=== PATIENT | female | born 1990 | race Two or more races ===

== ENCOUNTER 2023-01-09 08:29 | Outpatient (REF) | payer OTHER, SELFPAY ==
[2023-01-09 11:20] LABS: MANUAL DIFF FLAG NO
[2023-01-09 11:31] LABS: Basophils Absolute Auto 0.1 X10*3/uL (0.0-0.2); Basophils Percent Auto 0.7 % (0-2); Eosinophils Absolute Auto 0.3 X10*3/uL (0.0-0.4); Eosinophils Percent Auto 4.4 % (0-4); Hematocrit 43.6 % (37.0-47.0); Hemoglobin 14.3 g/dl (12.0-16.0); Imm Gran Abs Auto 0.03 X10*3/uL (0.00-0.03); Imm Gran Pct Auto 0.4 % (0.0-0.4); Lymphocytes Absolute Auto 2.3 X10*3/uL (1.2-4.9); Lymphocytes Percent Auto 31.3 % (20-40); Mean Corpuscular HGB Conc 32.8 g/dl (31.0-35.0); Mean Corpuscular Hemoglobin 29.4 pg (27.0-33.0); Mean Corpuscular Volume 89.7 fL (80.0-98.0); Mean Platelet Volume 10.4 fL (9.4-12.3); Monocytes Absolute Auto 0.6 X10*3/uL (0.1-1.2); Monocytes Percent Auto 8.4 % (2-11); Neutrophils Percent Auto 54.8 % (45-73); Platelet Count 254 X10*3/uL (160-400); Red Blood Count 4.86 X10*6/uL (4.20-5.50); White Blood Count 7.3 X10*3/uL (4.8-10.8)
[2023-01-09 11:46] LABS: Estimated Average Glucose 100 mg/dL; Hemoglobin A1c % 5.1 %
[2023-01-09 12:15] LABS: Alanine Aminotransferase 20 U/L (0-31); Albumin Level 4.1 g/dL (3.5-5.0); Alkaline Phosphatase 76 U/L (39-117); Anion Gap 15 (12-20); Aspartate Amino Transferase 20 U/L (5-31); Bilirubin Total 0.5 mg/dL (0.0-1.0); Blood Urea Nitrogen 14 mg/dL (9-16); Calcium 9.2 mg/dL (8.4-10.2); Carbon Dioxide 22 mmol/L (22-29); Chloride 107 mmol/L (96-108); Cholesterol 200 mg/dL; Estimated Glomerular Filt Rate > 60; Glucose Fasting 82 mg/dL (60-99); HDL Cholesterol 70 mg/dL; Iron 100 mcg/dL (30-160); LDL Cholesterol Calculated 121 mg/dl; Percent Iron Saturation 32 % (15-50); Potassium 3.8 mmol/L (3.3-5.1); Sodium 140 mmol/L (135-145); Total Iron Binding Capacity 312 mcg/dL (228-428); Total Protein 7.1 g/dL (6.5-8.0); Triglycerides 48 mg/dL; Unsaturated Iron Binding 212 ug/dL
[2023-01-09 12:39] LABS: Bacteria Urine 1+ (None Seen); RBC Urine >20 /HPF (0-2)
[2023-01-09 12:43] LABS: Appearance Urine Turbid; Color Urine Orange; Glucose Urine UA >=1000 mg/dL (Negative); Leukocyte Esterase Urine Trace (Negative); Nitrite Urine Negative (Negative); PH 5.5 (5.0-9.0); Specific Gravity - Urine >= 1.030 (1.005-1.025); UMIC TRIGGER UA YES; Urine Blood Large (3+) (Negative); Urine Ketones Negative (Negative); Urine Protein 100 (2+) mg/dL (Neg-Trace)
[2023-01-09 13:49] LABS: TSH reflex Free T4 0.67 uIU/mL (0.32-4.0)
== END 2023-01-09 08:30 | disposition home or self-care (01) ==
LOC: HO.HMGCLDS 08:29
PROVIDERS: Visit Provider Internal Medicine
DX: Z00.00 Encounter for general adult medical examination without abnormal findings (principal); F41.9 Anxiety disorder, unspecified; R53.83 Other fatigue; R73.9 Hyperglycemia, unspecified
CPT/HCPCS: 36415; 80053; 80061; 81001; 83036; 83540; 84443; 85025

== ENCOUNTER 2023-11-01 12:46 | Outpatient (AMB) | payer OTHER, SELFPAY ==
[2023-11-01 13:11] VITALS: BP 110/60; PULSE 83; TEMP 36.7; O2SAT 98; BMI 22.7
--- NOTE | 2023-11-01 13:11 | AM.OFFWIN_ITS ---
Intake Vital Signs 11/01/23 13:11 Height 5 ft 3 in Weight 128 lb BMI 22.7 BP 110/60 Blood Pressure Location Rt brachial Position Sitting Pulse 83 Pulse Source Pulse Oximeter Temp 98.0 F Pulse Oximetry (%) 98 Oxygen Delivery Method Room Air Intake Visit Reasons: EST/cough and fever (lobby masked) Intake Note: PT is here today for cough and fever started3 days ago Patient Tobacco Use Status: Former Tobacco user Allergies No Known Allergies Allergy (Verified 11/01/23 13:12) HPI HPI Comments History of Present Illness Details This is a 33-year-old female who presents to the office today for sick visit. Patient complaining of a fever and cough x3 days. She states the cough is dry without sputum production. She reports diffuse chest discomfort with coughing. She denies any shortness of breath. She denies any abdominal pain or nausea/vomiting / diarrhea. PFSH Family History (Updated 01/07/23 @ 08:12 by Trinity Fay MD) Mother DM type 2 (diabetes mellitus, type 2) HTN (hypertension) Social History (Updated 01/07/23 @ 08:08 by Trinity Fay MD) Household Members Other:: , 2 children, from [place] Housing: Apartment Patient Tobacco Use Status: Former Tobacco user e-Cigarette/Vaping Use: Never Used service: No Current occupational status: unemployed Cognitive needs: No Hearing needs: No Vision needs: Yes Review of Systems Const All systems reviewed & are unremarkable except as noted in HPI and below Reports no additional complaints Eyes Reports no additional complaints ENT Reports no additional complaints Card Reports no additional complaints Resp Reports no additional complaints GI Reports no additional complaints Reports no additional complaints Musc Reports no additional complaints Skin/Breast Reports system reviewed and no additional complaints, except as documented Neuro Reports no additional complaints Psych Reports no additional complaints Endo Reports no additional complaints Merrick/Lymph Reports no additional complaints Aller/Immun Reports no additional complaints Physical Exam Vital Signs: Last Vital Signs Temp 98.0 F 11/01/23 13:11 Pulse 83 11/01/23 13:11 BP 110/60 11/01/23 13:11 Pulse Ox 98 11/01/23 13:11 Oxygen Delivery Method Room Air 11/01/23 13:11 BMI result Body Mass Index 22.7 Const Other: Vital signs reviewed. Constitutional: Non-toxic appearing. No acute distress. Well-developed and well-nourished. HEENT: Normocephalic and atraumatic. Tympanic membranes without erythema, edema, or bulging bilaterally. External auditory canals without erythema or edema bilaterally. Moist mucous membranes. No pharyngeal erythema or exudates. Skin: Warm and dry. No rashes or lesions noted. Neck: Full and painless range of motion. No cervical lymphadenopathy. Cardio: Regular rate and rhythm. No murmurs, gallops, or rubs. No lower extremity edema. No JVD. Pulmonary: No respiratory distress. No accessory muscle usage. Clear to auscultation bilaterally without wheezing, crackles, or rhonchi. Gastrointestinal: Soft, nontender, and nondistended in all 4 quadrants. Normoactive bowel sounds in all 4 quadrants. Genitourinary: No CVA tenderness. Musculoskeletal: Normal range of motion in joints throughout the body. No deformity or other signs of injury. Neuro: Alert and oriented x4. Cranial nerves 2-12 grossly intact. No focal deficits appreciated. Psych: Normal mood and affect. Assessment & Plan Assessment & Plan (1) Viral URI with cough: Code(s): J06.9 - Acute upper respiratory infection, unspecified Plan: This is a 33-year-old female who presents to the office complaining of low-grade fevers and dry cough x3 days and some chest discomfort with coughing. On physical examination, patient is lungs are clear to auscultation bilaterally. She has reproducible chest wall tenderness to palpation. Patient very likely has a viral URI with a cough and the chest discomfort is likely caused by intercostal sprain/ strain secondary to coughing. I have low suspicion for pneumonia at this time given no sputum production; however, I will check a chest x-ray to further evaluate for pneumonia. If positive, I will send antibiotics to patient's pharmacy. I have sent a prescription for p.o. benzonatate 200 mg 3 times daily as needed for cough. Patient was advised to follow-up here or proceed directly to the emergency room if she were to develop persistent or worsening symptoms such as sputum production, hemoptysis, or shortness of breath. Orders: Orders SARS-CoV2/FLU/RSV Today R09.89 - Other specified symptoms and signs involving the circulatory and respiratory systems XR chest 2V Today R05.9 - Cough, unspecified Medications: New benzonatate 200 mg PO TID PRN 14 caps 0RF cough Coding Level of Care Code Est Pt Level 3 (51220) Diagnoses Viral URI with cough J06.9
== END 2023-11-01 13:59 | disposition home or self-care (01) ==
PROVIDERS: PCP Internal Medicine; Visit Provider Physician Assistant Medical
DX: J06.9 Acute upper respiratory infection, unspecified (principal)
CPT/HCPCS: 99213

== ENCOUNTER 2023-11-01 13:44 | Outpatient (REF) | payer OTHER, SELFPAY ==
--- NOTE | ~2023-11-01 | XR_ITS ---
EXAMINATION: XR CHEST CLINICAL INFORMATION: Cough. COMPARISON: None available. TECHNIQUE: 2 views of the chest were obtained. FINDINGS: No significant abnormality is noted involving the heart, lungs, mediastinum, bony thorax or soft tissues. XR/XR chest 2V IMPRESSION: Unremarkable examination.
[2023-11-01 17:34] LABS: Influenza A PCR POSITIVE (Negative); Influenza B PCR NEGATIVE (Negative); Resp Syncy Virus RNA Qual PCR NEGATIVE (Negative); SARS COV2 PCR INHOUSE NEGATIVE (Negative)
== END 2023-11-01 13:45 | disposition home or self-care (01) ==
LOC: HO.HMGCX 13:44
PROVIDERS: PCP Internal Medicine; Visit Provider Physician Assistant Medical
DX: Z11.52 Encounter for screening for COVID-19 (principal); Z20.822 Contact with and (suspected) exposure to COVID-19; R09.89 Other specified symptoms and signs involving the circulatory and respiratory systems; R05.9 Cough, unspecified
CPT/HCPCS: 0241U; 71046

== ENCOUNTER 2024-04-17 10:47 | Outpatient (REF) | payer OTHER, SELFPAY ==
[2024-04-17 13:06] LABS: Appearance Urine Clear; Color Urine Yellow; Glucose Urine UA >=1000 mg/dL (Negative); Leukocyte Esterase Urine Negative (Negative); Nitrite Urine Negative (Negative); Specific Gravity - Urine >= 1.030 (1.005-1.025); UMIC TRIGGER UA YES; Urine Blood Moderate (2+) (Negative); Urine Ketones Negative (Negative); Urine Protein Negative (Neg-Trace)
[2024-04-17 13:10] LABS: Bacteria Urine None Seen (None Seen); Hyaline Casts Urine 0-2 /LPF (0-2); RBC Urine >20 /HPF (0-2); Squamous Epithelial Cell Urine 0-2 /HPF (0-2); WBC Urine 0-5 /HPF (0-5)
[2024-04-17 13:28] LABS: MANUAL DIFF FLAG NO
[2024-04-17 13:45] LABS: Basophils Percent Auto 0.6 % (0-2); Eosinophils Absolute Auto 0.1 X10*3/uL (0.0-0.4); Eosinophils Percent Auto 1.1 % (0-4); Imm Gran Abs Auto 0.02 X10*3/uL (0.00-0.03); Imm Gran Pct Auto 0.3 % (0.0-0.4); Lymphocytes Absolute Auto 2.4 X10*3/uL (1.2-4.9); Lymphocytes Percent Auto 36.7 % (20-40); Mean Corpuscular HGB Conc 32.6 g/dl (31.0-35.0); Mean Corpuscular Hemoglobin 29.9 pg (27.0-33.0); Mean Corpuscular Volume 91.7 fL (80.0-98.0); Mean Platelet Volume 10.6 fL (9.4-12.3); Monocytes Absolute Auto 0.7 X10*3/uL (0.1-1.2); Monocytes Percent Auto 9.8 % (2-11); Neutrophils Absolute Auto 3.4 x10*3/uL (2.0-8.3); Neutrophils Percent Auto 51.5 % (45-73); Platelet Count 239 X10*3/uL (160-400); Red Blood Count 4.69 X10*6/uL (4.20-5.50); Red Cell Distribution Width 13.1 % (11.0-16.0); White Blood Count 6.7 X10*3/uL (4.8-10.8)
[2024-04-17 14:02] LABS: Alanine Aminotransferase 16 U/L (0-31); Albumin Level 4.1 g/dL (3.5-5.0); Alkaline Phosphatase 121 U/L (39-117); Anion Gap 12 (12-20); Aspartate Amino Transferase 16 U/L (5-31); Bilirubin Total 0.2 mg/dL (0.0-1.0); Blood Urea Nitrogen 16 mg/dL (9-16); Calcium 9.2 mg/dL (8.4-10.2); Carbon Dioxide 25 mmol/L (22-29); Chloride 107 mmol/L (96-108); Estimated Glomerular Filt Rate > 60; Glucose Random 84 mg/dL (60-115); Magnesium 2.2 mg/dL (1.6-2.6); Phosphorus 2.7 mg/dL (2.7-4.5); Potassium 4.2 mmol/L (3.3-5.1); Sodium 140 mmol/L (135-145); Uric Acid 2.4 mg/dL (2.4-5.7)
[2024-04-17 14:03] LABS: Creatinine Urine 105.07 mg/dL; Microalbum/Creatinine Ratio Ur 16.1 ug/mg cr (<30); Protein/Creatinine Ratio, Ur 0.08 (<0.2); Total Protein Urine Random 8 mg/dL (<12)
[2024-04-17 14:06] LABS: Parathyroid Hormone Intact 44.7 pg/mL (8.7-77.1)
[2024-04-17 14:09] LABS: Vitamin D 25-OH Total 46.1 ng/mL (>30)
== END 2024-04-17 10:48 | disposition home or self-care (01) ==
LOC: HO.HMGCLDS 10:47
PROVIDERS: PCP Internal Medicine; Visit Provider Internal Medicine Nephrology
DX: E74.818 Other disorders of glucose transport (principal); N08 Glomerular disorders in diseases classified elsewhere; R80.9 Proteinuria, unspecified; N15.9 Renal tubulo-interstitial disease, unspecified; N95.1 Menopausal and female climacteric states
CPT/HCPCS: 36415; 80053; 81001; 82043; 82306; 82570; 83735; 83970; 84100; 84156; 84550; 85025; 87086; 87147

== ENCOUNTER 2024-06-09 10:25 | Outpatient (AMB) | payer OTHER, SELFPAY ==
[2024-06-09 10:27] VITALS: BP 106/66; PULSE 73; O2SAT 99; BMI 22.8
--- NOTE | 2024-06-09 10:27 | MHC.PC.OV ---
Vital Signs 06/09/24 10:27 Height 5 ft 3 in Weight 129 lb BMI 22.8 BP 106/66 Blood Pressure Location Lt brachial Position Sitting Pulse 73 Pulse Source Pulse Oximeter Pulse Oximetry (%) 99 Oxygen Delivery Method Room Air Intake Visit Reasons: Annual PE overdue Intake Note: Pt is here today for PE. Allergies No Known Allergies Allergy (Verified 06/09/24 10:27) Medication List - Last Reconciled 06/09/24 by Trinity Fay MD azithromycin 250 mg PO DAILY 6 days Tobacco use date assessed: 06/09/24 Dental Screening Dental Screen Date: 06/09/24 Did you have a dental visit in the last 12 months?: Yes Did you have a dental problem in the last 6 months where you did not have access to dental care?: No Was dental information given to patient?: Patient has dentist HPI Annual PE overdue HPI Details Pt presents for PE. Pt c/o sinus congestion, productive cough and and dyspnea on exertion for 1 month. Patient denies fever chills PND orthopnea pleurisy. Pt c/o constipation on and off for 6 months. Patient denies hematochezia melena abdominal pain nausea vomiting PFSH Surgical History Hx of hysterectomy Family History Mother DM type 2 (diabetes mellitus, type 2) HTN (hypertension) Social History Household Members Other:: , 2 children, from [place] Housing: Apartment Patient Tobacco Use Status: Former Tobacco user e-Cigarette/Vaping Use: Never Used service: No Current occupational status: unemployed Cognitive needs: No Hearing needs: No Vision needs: Yes Questionnaire PHQ-9 Over the last 2 weeks, how often have you been bothered by any of the following problems? 1. Little interest or pleasure in doing things: more than half the days 2. Feeling down, depressed, or hopeless: several days 3. Trouble falling or staying asleep, or sleeping too much: several days 4. Feeling tired or having little energy: more than half the days 5. Poor appetite or overeating: more than half the days 6. Feeling bad about yourself - or that you are a failure or have let yourself or your family down: not at all 7. Trouble concentrating on things, such as reading the newspaper or watching television: several days 8. Moving or speaking so slowly that other people could have noticed. Or the opposite - being so fidgety or restless that you have been moving around a lot more than usual: not at all 9. Thoughts that you would be better off or of hurting yourself in some way: not at all Total score: 9 Depression Screening Interpretation: Negative Depression Screening Done: Yes Source: Developed by Drs. Jose Cruz Tejeda, Lesli Hong, Jovanni Palma and colleagues, with an educational chasidy from [employer]. Thrive Questionnaire Date Thrive assessed: 06/09/24 I am a: Patient What is your living situation today?: I have a steady place to live Within the past 12 months, did the food you bought not last and you didn't have the money to get more?: Never true Within the past 12 months, did you worry whether your food would run out before you got money to buy more?: Never true Do you have trouble paying for medicines?: No Do you have trouble getting transportation to medical appointments?: No Do you have trouble paying your heating and electricity bill?: No Do you have trouble taking care of your child, family member or friend?: No Do you have trouble with day-to-day activities such as bathing, preparing meals, shopping, managing finances, etc.?: No Are you currently unemployed and looking for a job?: Yes Are you interested in more education?: Yes Please select the resources that you would like help with: Job search/training and Education THRIVE Score: 0 AUDIT C Alcohol Use Questionnaire (AUDIT-C) 1. How often do you have a drink containing alcohol?: Never 3. How often do you have six or more drinks on one occasion?: Never Total Score: 0 LISA-7 AMB Questionnaire LISA-7 Date LISA - 7 assessed: 06/09/24 Feeling nervous, anxious, or on edge: 0 = Not at all Not being able to stop or control worryin = Several days Worrying too much about different things: 2 = More than half the days Trouble relaxin = Several days Being so restless that it is hard to sit still: 0 = Not at all Becoming easily annoyed or irritable: 1 = Several days Feeling afraid as if something awful might happen: 1 = Several days Total LISA-7 score (0-4 normal; 5-9 mild; 10-14 moderate; 15-21 severe): 6 Source: Developed by Drs. Jose Cruz Tejeda, Lesli Hong, Jovanni Palma and colleagues, with an educational chasidy from [employer]. Review of Systems Const All systems reviewed & are unremarkable except as noted in HPI and below Reports no additional complaints Eyes Reports no additional complaints ENT Reports no additional complaints Card Reports no additional complaints Resp Reports no additional complaints GI Reports no additional complaints Reports no additional complaints Physical exam (Primary Care) Vital Signs: Last Vital Signs Pulse 73 06/09/24 10:27 BP 106/66 06/09/24 10:27 Pulse Ox 99 06/09/24 10:27 Oxygen Delivery Method Room Air 06/09/24 10:27 BMI result Body Mass Index 22.8 Tobacco/Smoking Status: Tobacco use Status Tobacco use date assessed 06/09/24 06/09/24 10:34 Patient Tobacco Use Status Former Tobacco user 06/09/24 10:34 e-Cigarette/Vaping Use Never Used 06/09/24 10:34 PHQ-9: PHQ-9 Score PHQ-9: Total score 9 06/09/24 11:21 Depression Screening Interpretation: Negative Thrive Assessment: Date of Thrive Assessment Date Thrive assessed 06/09/24 06/09/24 11:21 Const General: no acute distress HENMT Head: Yes normal to inspection Ears: hearing grossly normal bilaterally General nose exam: Normal external nose present Face and sinus: Yes normal facial exam Mouth: Normal oral and palatal mucosa present Throat: Yes posterior oropharynx normal Eyes General: appearance normal, both eyes and all related structures Neck Neck: Yes no lymphadenopathy and Yes supple Resp Effort & Inspection: normal respiratory effort Auscultation: clear to auscultation bilaterally Cardio Rhythm: regular rhythm Heart sounds: S1 normal heart sound present and S2 normal heart sound present GI Inspection: Yes normal to inspection Palpation (GI): Soft to palpation Percussion: Yes normal to percussion Auscultation: normal bowel sounds Assessment and Plan Assessment & Plan (1) Annual physical exam: Code(s): Z00.00 - Encounter for general adult medical examination without abnormal findings Plan: Well-balanced diet regular exercise discussed with the patient she will return for fasting blood work (2) Endometriosis: Comment: f/u vocational training teacher, [place], pap 2020 Code(s): N80.9 - Endometriosis, unspecified Plan: Follow-up with vocational training teacher (3) Cough: Code(s): R05.9 - Cough, unspecified Plan: Z-Gael as prescribed and supportive care discussed with the patient. Medications: New azithromycin start on day 2 of therapy 250 mg PO DAILY 6 tabs 0RF 6 days Coding Level of Care Code Est Pt Prev Care 18-39y(99917) Diagnoses Annual physical exam Z00.00 Endometriosis N80.9 Cough R05.9
== END 2024-06-09 12:14 | disposition home or self-care (01) ==
PROVIDERS: PCP Internal Medicine; Visit Provider Internal Medicine
DX: Z00.00 Encounter for general adult medical examination without abnormal findings (principal); N80.9 Endometriosis, unspecified; R05.9 Cough, unspecified
CPT/HCPCS: 99395

== ENCOUNTER 2024-06-09 13:00 | Outpatient (REF) | payer OTHER, SELFPAY ==
--- NOTE | ~2024-06-09 | XR_ITS ---
EXAMINATION: XR CHEST CLINICAL INFORMATION: Cough COMPARISON: None available. TECHNIQUE: 2 views of the chest were obtained. FINDINGS: No significant abnormality is noted involving the heart, lungs, mediastinum, bony thorax or soft tissues. XR/XR chest 2V IMPRESSION: Unremarkable examination.
== END 2024-06-09 13:01 | disposition home or self-care (01) ==
LOC: HO.HMGCX 13:00
PROVIDERS: PCP Internal Medicine; Visit Provider Internal Medicine
DX: R05.9 Cough, unspecified (principal)
CPT/HCPCS: 71046

== ENCOUNTER 2025-04-14 11:16 | Outpatient (REF) | payer OTHER, SELFPAY ==
--- OUTSIDE RECORDS SUMMARY | 2025-04-14 12:20 | XMS_ITS | Clinical Summary ---
Author Organization [facility] Address [address] [place] [address] Care Team Providers Care Manager Copy Name Role Phone Luisa Naik FOOD BEVERAGE MANAGER Primary Care Provider [phone] Source Comments PLEASE NOTE, if this patient is a minor, it may be UNLAWFUL to discuss sensitive information that is contained in these records (such as FAMILY PLANNING, MENTAL HEALTH or SUBSTANCE ABUSE) with the minor patient's parent or other person without the patient's specific authorization.[facility] Allergies No known active allergies Medications hydrocortisone (PROCTOCORT) 1 % rectal creamIndication s:Acute hemorrhoid Place rectally 2 (two) times daily 30 g 06/03/2018 Active cyclobenzaprine (FLEXERIL) 5 mg tabletIndicatio ns:Upper back strain, initial encounter Take 1 Tab by mouth nightly at bedtime as needed for muscle spasms 20 Tab 01/15/2019 Active ibuprofen (ADVIL,MOTRIN) 400 mg tabletIndicatio ns:Upper back strain, initial encounter Take 1 Tab by mouth 3 (three) times daily as needed for pain With food 20 Tab 01/15/2019 Active Active Problems Problem Noted Date Diagnosed Date Pap smear, as part of routine gynecological exam ination 12/17/2018 Overview (12/17/2018): Thin Prep-Negative Chronic kidney disease 06/03/2018 Immunizations Immunization Administration Dates Next Due TDAP 06/03/2018 Family History Medical History Relation Name Comments Hypertension Father Diabetes Mother Hypertension Mother Relation Name Status Comments Father Alive Mother Alive Social History Tobacco Use Types Packs/Day Years Used Date Smoking Tobacco: Former Smokeless Tobacco: Never Alcohol Use Standard Drinks/Week Comments No 0 (1 standard drink = 0.6 oz pur e alcohol) Social Connections Answer Date Recorded Connectedness 0 08/21/2024 Financial Resource Strain Answer Date R ecorded Financial Resource Strain 0 2018 Stress Answer Date Recorded Stress 0 07/27/2019 Physical Activity Answer Date Recorded Physical Activity 0 07/27/2019 Food Insecurity Answer Date Recorded Food 0 08/27/2024 Transportation Needs Answer Date Record ed Transportation 0 07/27/2019 Housing Stability Answer Date Recorded Housing 0 07/27/2019 Safety and Environment Answer Date Nathaniel rded Safety 0 07/27/2019 Utilities Answer Date Recorded Utilities 0 07/27/2019 Employment Answer Date Recorded Stress 0 08/21/2024 Comments No Sex and Gender Information Value Date Recorded Sex Assigned at Female 04/11/2018 8:11 AM PDT Legal Sex Female 6:57 AM PDT Gender Identity Female 04/11/2018 8:11 AM PDT Sexual Orientation Straight 04/11/2018 8: 11 AM PDT Last Filed Vital Signs Vital Sign Reading Time Taken Comments Blood Pressure 122/78 01/15/2019 3:37 PM EST Pulse 82 01/15/2019 3:37 PM EST Temperature 36.6 ??C (97.8 ??F) 01/15/2019 3:37 PM ES T Respiratory Rate 16 01/15/2019 3:37 PM EST Oxygen Saturation - - Inhaled Oxygen Concentration - - Weight 54.4 kg (120 lb) 01/15/2019 3:37 PM EST Height 160 cm (5' 3 ) 01/15/2019 3:37 PM EST Body Mass Index 21.26 01/15/2019 3:37 PM EST Plan of Treatment Not on file Insurance [place] [facility] Care Teams Manager Copy Relationship Specialty Start Date End Date Luisa Naik FNP [address] [place] [address] PCP - General Family Medicine, FAIRING MAN 12/05/20
--- OUTSIDE RECORDS SUMMARY | 2025-04-14 12:20 | XMS_ITS | Clinical Summary ---
Author Organization [facility] Address [address] [place] [address] Care Team Providers Care Customs Manager Name Role Phone Unavailable Primary Care Provider Unavailabl e Social History Tobacco Use Types Packs/Day Years Used Date Smoking Tobacco: Never Assessed Sex and Gender Information Value Date Recorded Sex Assigned at Not on file Gender Identity Not on file Sexual Orientation Not on file Plan of Treatment Not on file
[2025-04-14 13:45] LABS: MANUAL DIFF FLAG NO
[2025-04-14 13:55] LABS: Basophils Absolute Auto 0.1 X10*3/uL (0.0-0.2); Basophils Percent Auto 0.8 % (0-2); Eosinophils Absolute Auto 0.1 X10*3/uL (0.0-0.4); Eosinophils Percent Auto 1.7 % (0-4); Hematocrit 45.4 % (37.0-47.0); Hemoglobin 14.6 g/dl (12.0-16.0); Imm Gran Abs Auto 0.04 X10*3/uL (0.00-0.03); Imm Gran Pct Auto 0.7 % (0.0-0.4); Lymphocytes Absolute Auto 2.3 X10*3/uL (1.2-4.9); Lymphocytes Percent Auto 38.2 % (20-40); Mean Corpuscular HGB Conc 32.2 g/dl (31.0-35.0); Mean Corpuscular Hemoglobin 29.7 pg (27.0-33.0); Mean Corpuscular Volume 92.5 fL (80.0-98.0); Mean Platelet Volume 10.4 fL (9.4-12.3); Monocytes Absolute Auto 0.9 X10*3/uL (0.1-1.2); Monocytes Percent Auto 15.7 % (2-11); Neutrophils Absolute Auto 2.6 x10*3/uL (2.0-8.3); Neutrophils Percent Auto 42.9 % (45-73); Platelet Count 242 X10*3/uL (160-400); Red Blood Count 4.91 X10*6/uL (4.20-5.50); Red Cell Distribution Width 13.2 % (11.0-16.0); White Blood Count 5.9 X10*3/uL (4.8-10.8)
[2025-04-14 14:02] LABS: Appearance Urine Clear; Color Urine Yellow; Glucose Urine UA >=1000 mg/dL (Negative); Leukocyte Esterase Urine Negative (Negative); Nitrite Urine Negative (Negative); Specific Gravity - Urine 1.025 (1.005-1.025); UMIC TRIGGER UA YES; Urine Blood Large (3+) (Negative); Urine Ketones Negative (Negative); Urine Protein Negative (Neg-Trace)
[2025-04-14 14:09] LABS: Bacteria Urine None Seen (None Seen); Hyaline Casts Urine 0-2 /LPF (0-2); RBC Urine >20 /HPF (0-2); Squamous Epithelial Cell Urine 0-2 /HPF (0-2); WBC Urine 0-5 /HPF (0-5)
[2025-04-14 14:26] LABS: Parathyroid Hormone Intact 65.3 pg/mL (8.7-77.1)
[2025-04-14 14:31] LABS: Alanine Aminotransferase 33 U/L (0-31); Anion Gap 12 (12-20); Aspartate Amino Transferase 28 U/L (5-31); Bilirubin Total 0.2 mg/dL (0.0-1.0); Blood Urea Nitrogen 12 mg/dL (9-16); Carbon Dioxide 25 mmol/L (22-29); Chloride 107 mmol/L (96-108); Estimated Glomerular Filt Rate > 60; Glucose Random 79 mg/dL (60-115); Magnesium 2.2 mg/dL (1.6-2.6); Phosphorus 2.6 mg/dL (2.7-4.5); Sodium 140 mmol/L (135-145); Total Protein 6.8 g/dL (6.5-8.0); Uric Acid 2.6 mg/dL (2.4-5.7)
[2025-04-14 14:41] LABS: Alkaline Phosphatase 141 U/L (39-117); Vitamin D 25-OH Total 34.6 ng/mL (>30)
[2025-04-14 14:42] LABS: Creatinine Urine 83.35 mg/dL; Total Protein Urine Random < 7 mg/dL (<12)
== END 2025-04-14 11:17 | disposition home or self-care (01) ==
LOC: HO.HMGCLDS 11:16
PROVIDERS: PCP Internal Medicine; Visit Provider Internal Medicine Nephrology
DX: R80.9 Proteinuria, unspecified (principal); N15.8 Other specified renal tubulo-interstitial diseases
CPT/HCPCS: 36415; 80053; 81001; 82306; 82570; 83735; 83970; 84100; 84156; 84550; 85025

== ENCOUNTER 2025-07-02 08:11 | Outpatient (REF) | payer OTHER, SELFPAY ==
[2025-07-02 10:53] LABS: MANUAL DIFF FLAG NO
[2025-07-02 10:58] LABS: Hematocrit 42.1 % (37.0-47.0); Hemoglobin 13.6 g/dl (12.0-16.0); Imm Gran Abs Auto 0.03 X10*3/uL (0.00-0.03); Imm Gran Pct Auto 0.5 % (0.0-0.4); Lymphocytes Absolute Auto 2.4 X10*3/uL (1.2-4.9); Mean Corpuscular HGB Conc 32.3 g/dl (31.0-35.0); Mean Corpuscular Hemoglobin 29.2 pg (27.0-33.0); Mean Corpuscular Volume 90.3 fL (80.0-98.0); NRBC Abs Auto 0.000 X10*3/uL (0.0-0.012); NRBC Pct Auto 0.0 /100WBC (0.0-0.2); Platelet Count 235 X10*3/uL (160-400); Red Blood Count 4.66 X10*6/uL (4.20-5.50); White Blood Count 6.6 X10*3/uL (4.8-10.8)
[2025-07-02 11:27] LABS: Alanine Aminotransferase 37 U/L (0-31); Albumin Level 4.1 g/dL (3.5-5.0); Alkaline Phosphatase 121 U/L (39-117); Anion Gap 11 (12-20); Aspartate Amino Transferase 41 U/L (5-31); Blood Urea Nitrogen 12 mg/dL (9-16); Calcium 8.4 mg/dL (8.4-10.2); Carbon Dioxide 25 mmol/L (22-29); Chloride 109 mmol/L (96-108); Cholesterol 163 mg/dL (<200); Estimated Glomerular Filt Rate > 60; HDL Cholesterol 55 mg/dL (>40); Iron 124 mcg/dL (30-160); Percent Iron Saturation 51 % (15-50); Potassium 3.7 mmol/L (3.3-5.1); Sodium 141 mmol/L (135-145); Total Iron Binding Capacity 244 mcg/dL (228-428); Total Protein 6.8 g/dL (6.5-8.0); Triglycerides 70 mg/dL (<150); Unsaturated Iron Binding 120 ug/dL
[2025-07-02 12:07] LABS: Folate 11.7 ng/mL (> or = 4.0); Vitamin B12 1309 pg/mL (200-900)
== END 2025-07-02 08:12 | disposition home or self-care (01) ==
LOC: HO.HMGCLDS 08:11
PROVIDERS: PCP Internal Medicine; Visit Provider Internal Medicine
DX: Z00.00 Encounter for general adult medical examination without abnormal findings (principal); R73.9 Hyperglycemia, unspecified; R53.83 Other fatigue; Z87.891 Personal history of nicotine dependence
CPT/HCPCS: 36415; 80053; 80061; 82306; 82607; 82746; 83540; 84443; 85025; 96127

== ENCOUNTER 2025-07-02 08:11 | Outpatient (AMB) | payer OTHER, SELFPAY ==
--- OUTSIDE RECORDS SUMMARY | 2025-07-02 08:15 | XMS_ITS | Clinical Summary ---
Author Organization [facility] Address [address] [place] [address] Care Team Providers Care Director Quality Assurance Name Role Phone Unavailable Primary Care Provider Unavailabl e Social History Tobacco Use Types Packs/Day Years Used Date Smoking Tobacco: Never Assessed Sex and Gender Information Value Date Recorded Sex Assigned at Not on file Gender Identity Not on file Sexual Orientation Not on file Plan of Treatment Not on file
--- OUTSIDE RECORDS SUMMARY | 2025-07-02 08:15 | XMS_ITS | Clinical Summary ---
Author Organization [facility] Address [address] [place] [address] Care Team Providers Care Health Aid Name Role Phone Luisa Naik MACHINE CEMENTER AND FOLDER Primary Care Provider [phone] Source Comments PLEASE NOTE, if this patient [...] 82 01/15/2019 3:37 PM EST Temperature 36.6 C (97.8 F) 01/15/2019 3:37 PM EST Respiratory Rate 16 01/15/2019 3:37 PM EST Oxygen Saturation - - Inhaled Oxygen Concentration - - Weight 54.4 kg (120 lb) 01/15/2019 3:37 PM EST Height 160 cm (5' 3 ) 01/15/2019 3:37 PM EST Body Mass Index 21.26 01/15/2019 3:37 PM EST Plan of Treatment Not on file Insurance [place] MEDICAID [facility] Care Teams Health Aid Relationship Specialty Start Date End Date Luisa Naik FNP [address] [place] [address] PCP - General Family Medicine, MANAGER TRADE 12/05/20
--- NOTE | 2025-07-02 08:20 | A.OFFPC_ITS ---
Vital Signs 07/02/25 08:23 Height 5 ft 3 in Weight 140 lb BMI 24.8 BP 106/70 Blood Pressure Location Lt brachial Position Sitting Respiration 18 Pulse 72 Pulse Source Pulse Oximeter Temp 98.0 F Temp Source Oral Pulse Oximetry (%) 94 Oxygen Delivery Method Room Air Intake Visit Reasons: Annual PE overdue Intake Note: Pt is here today for PE. Allergies No Known Allergies Allergy (Verified 07/02/25 08:24) Medication List - Last Reconciled 07/02/25 by Trinity Fay MD No Known Home Meds Tobacco use date assessed: 07/02/25 Dental Screening Dental Screen Date: 07/02/25 Did you have a dental visit in the last 12 months?: Yes Did you have a dental problem in the last 6 months where you did not have access to dental care?: No Was dental information given to patient?: Patient has dentist HPI Annual PE overdue HPI Details Pt presents for PE. PFSH Medical History (Updated 07/02/25 @ 10:42 by Trinity Fay MD) Proteinuria Endometriosis Annual physical exam Surgical History (Updated 07/02/25 @ 08:29 by NAUN Ragsdale) Hx of appendectomy Hx of hysterectomy Family History Mother DM type 2 (diabetes mellitus, type 2) HTN (hypertension) Social History Household Members Other:: , 2 children, from [place] Housing: Apartment Patient Tobacco Use Status: Former Tobacco user e-Cigarette/Vaping Use: Never Used service: No Current occupational status: unemployed Cognitive needs: No Hearing needs: No Vision needs: Yes Questionnaire PHQ-9 Over the last 2 weeks, how often have you been bothered by any of the following problems? 1. Little interest or pleasure in doing things: more than half the days 2. Feeling down, depressed, or hopeless: several days 3. Trouble falling or staying asleep, or sleeping too much: several days 4. Feeling tired or having little energy: several days 5. Poor appetite or overeating: several days 6. Feeling bad about yourself - or that you are a failure or have let yourself or your family down: not at all 7. Trouble concentrating on things, such as reading the newspaper or watching television: several days 8. Moving or speaking so slowly that other people could have noticed. Or the opposite - being so fidgety or restless that you have been moving around a lot more than usual: not at all 9. Thoughts that you would be better off or of hurting yourself in some way: not at all Total score: 7 Depression Screening Interpretation: Negative Depression Screening Done: Yes 07416 - PHQ-9 Billing: Yes Source: Developed by Drs. Jose Cruz Tejeda, Lesli Hong, Jovanni Palma and colleagues, with an educational chasidy from [employer]. Thrive Questionnaire Date Thrive assessed: 07/02/25 I am a: Patient What is your living situation today?: I have a steady place to live Within the past 12 months, did the food you bought not last and you didn't have the money to get more?: Never true Within the past 12 months, did you worry whether your food would run out before you got money to buy more?: Never true Do you have trouble paying for medicines?: No Do you have trouble getting transportation to medical appointments?: No Do you have trouble paying your heating and electricity bill?: No Do you have trouble taking care of your child, family member or friend?: No Do you have trouble with day-to-day activities such as bathing, preparing meals, shopping, managing finances, etc.?: No Are you currently unemployed and looking for a job?: Yes Are you interested in more education?: Yes Please select the resources that you would like help with: None Currently or been in a relationship where the following occur: No concerns reported THRIVE Score: 0 AUDIT C Alcohol Use Questionnaire (AUDIT-C) 1. How often do you have a drink containing alcohol?: Never 3. How often do you have six or more drinks on one occasion?: Never Total Score: 0 LISA-7 AMB Questionnaire LISA-7 Date LISA - 7 assessed: 07/02/25 Feeling nervous, anxious, or on edge: 1 = Several days Not being able to stop or control worryin = Not at all Worrying too much about different things: 0 = Not at all Trouble relaxin = Several days Being so restless that it is hard to sit still: 0 = Not at all Becoming easily annoyed or irritable: 0 = Not at all Feeling afraid as if something awful might happen: 1 = Several days Total LISA-7 score (0-4 normal; 5-9 mild; 10-14 moderate; 15-21 severe): 3 Source: Developed by Drs. Jose Cruz Tejeda, Lesli Hong, Jovanni Palma and colleagues, with an educational chasidy from [employer]. LISA-7 Assessment Billing LISA-7 Assessment Tool: LISA-7 Assessment 75191 Review of Systems Const All systems reviewed & are unremarkable except as noted in HPI and below Reports no additional complaints Eyes Reports no additional complaints ENT Reports no additional complaints Card Reports no additional complaints Resp Reports no additional complaints GI Reports no additional complaints Reports no additional complaints Physical exam (Primary Care) Vital Signs: Last Vital Signs Temp 98.0 F 07/02/25 08:23 Pulse 72 07/02/25 08:23 Resp 18 07/02/25 08:23 BP 106/70 07/02/25 08:23 Pulse Ox 94 07/02/25 08:23 Oxygen Delivery Method Room Air 07/02/25 08:23 BMI result Body Mass Index 24.8 Tobacco/Smoking Status: Tobacco use Status Tobacco use date assessed 07/02/25 07/02/25 08:30 Patient Tobacco Use Status Former Tobacco user 07/02/25 08:30 e-Cigarette/Vaping Use Never Used 07/02/25 08:20 PHQ-9: PHQ-9 Score PHQ-9: Total score 7 07/02/25 08:30 Depression Screening Interpretation: Negative Thrive Assessment: Date of Thrive Assessment Date Thrive assessed 07/02/25 07/02/25 08:30 Currently or been in a relationship where the following occur: No concerns reported Const General: no acute distress HENMT Head: Yes normal to inspection Ears: TM's normal bilaterally Mouth: Normal oral and palatal mucosa present Throat: Yes posterior oropharynx normal Eyes General: appearance normal, both eyes and all related structures Neck Neck: Yes no lymphadenopathy and Yes supple Resp Effort & Inspection: normal respiratory effort Auscultation: clear to auscultation bilaterally Cardio Rhythm: regular rhythm Heart sounds: S1 normal heart sound present and S2 normal heart sound present GI Inspection: Yes normal to inspection Palpation (GI): Soft to palpation Percussion: Yes normal to percussion Auscultation: normal bowel sounds Coding Level of Care Code Est Pt Prev Care 18-39y(23813) Diagnoses Annual physical exam Z00.00 Additional Codes LISA-7 Assessment Billing - LISA-7 Assessment Tool: LISA-7 Assessment 07050 ([id number]) PHQ-9 - 24877 - PHQ-9 Billing: Yes ([id number]) Assessment & Plan Assessment & Plan (1) Annual physical exam: Code(s): Z00.00 - Encounter for general adult medical examination without abnormal findings Category: Medical Plan: Well-balanced diet regular physical activity discussed with the patient. She is established with dressmaking teacher for Pap smear and pelvic exam. Patient will have a fasting blood work today Orders: Orders Comprehensive [place]. Panel Fast Today R73.9 - Hyperglycemia, unspecified, Z00.00 - Encounter for general adult medical examination without abnormal findings Complete Blood Count Auto Diff Today R73.9 - Hyperglycemia, unspecified, Z00.00 - Encounter for general adult medical examination without abnormal findings Lipid Panel Today R73.9 - Hyperglycemia, unspecified, Z00.00 - Encounter for general adult medical examination without abnormal findings TSH reflex Free T4 Today R73.9 - Hyperglycemia, unspecified, Z00.00 - Encounter for general adult medical examination without abnormal findings UA w Microscopic Today R73.9 - Hyperglycemia, unspecified, Z00.00 - Encounter for general adult medical examination without abnormal findings IRON PROFILE Today R53.83 - Other fatigue, R73.9 - Hyperglycemia, unspecified Vitamin B12 and Folate Today R53.83 - Other fatigue, R73.9 - Hyperglycemia, unspecified Vitamin D 25-OH Total Today R53.83 - Other fatigue, R73.9 - Hyperglycemia, unspecified
[2025-07-02 08:23] VITALS: BP 106/70; PULSE 72; RESP 18; TEMP 36.7; O2SAT 94; BMI 24.8
== END 2025-07-02 12:05 | disposition home or self-care (01) ==
LOC: HO.HMCC 08:12
PROVIDERS: PCP Internal Medicine; Visit Provider Internal Medicine
DX: Z00.00 Encounter for general adult medical examination without abnormal findings (principal)

== ENCOUNTER 2025-07-09 08:46 | Outpatient (REF) | payer OTHER, SELFPAY ==
--- OUTSIDE RECORDS SUMMARY | 2025-07-09 09:11 | XMS_ITS | Clinical Summary ---
Author Organization [facility] Address [address] [place] [address] Care Team Providers Care Merchandise Adjustment Clerk Name Role Phone Luisa Naik STORE DETECTIVE Primary Care Provider [phone] Source Comments PLEASE NOTE, if this patient [...] Plan of Treatment Not on file Insurance [place] [facility] Care Teams Merchandise Adjustment Clerk Relationship Specialty Start Date End Date Luisa Naik FNP [address] [place] [address] PCP - General Family Medicine, CLINICAL ANALYST 12/05/20
--- OUTSIDE RECORDS SUMMARY | 2025-07-09 09:11 | XMS_ITS | Clinical Summary ---
Author Organization [facility] Address [address] [place] [address] Care Team Providers Care Photographer Assistant Name Role Phone Unavailable Primary Care Provider Unavailabl e Social History Tobacco Use Types Packs/Day Years Used Date Smoking Tobacco: Never Assessed Sex and Gender Information Value Date Recorded Sex Assigned at Not on file Gender Identity Not on file Sexual Orientation Not on file Plan of Treatment Not on file
[2025-07-09 10:21] LABS: Appearance Urine Clear; Glucose Urine UA >=1000 mg/dL (Negative); PH 5.5 (5.0-9.0); Specific Gravity - Urine >= 1.030 (1.005-1.025); UMIC TRIGGER UA YES
== END 2025-07-09 08:47 | disposition home or self-care (01) ==
LOC: HO.HMGCLNP 08:46
PROVIDERS: Visit Provider Internal Medicine
DX: R73.9 Hyperglycemia, unspecified (principal); Z00.00 Encounter for general adult medical examination without abnormal findings
CPT/HCPCS: 81001

== ENCOUNTER 2025-08-30 10:28 | Outpatient (REF) | payer OTHER, SELFPAY ==
--- OUTSIDE RECORDS SUMMARY | 2025-08-30 11:41 | XMS_ITS | Clinical Summary ---
Author Organization [facility] Address [address] [place] [address] Care Team Providers Care Services Engineer Name Role Phone Luisa Naik HORTICULTURAL SPECIALTY GROWER Primary Care Provider [phone] Source Comments PLEASE NOTE, if this patient [...] Plan of Treatment Not on file Insurance [place] [facility] D[facility] Care Teams Services Engineer Relationship Specialty Start Date End Date Luisa Naik FNP [address] [place] [address] PCP - General Family Medicine, GLASS LATHE OPERATOR 12/05/20
--- OUTSIDE RECORDS SUMMARY | 2025-08-30 11:41 | XMS_ITS | Clinical Summary ---
Author Organization [facility] Address [address] [place] [address] Care Team Providers Care Assistant Women'S Tennis Coach Name Role Phone Unavailable Primary Care Provider Unavailabl e Social History Tobacco Use Types Packs/Day Years Used Date Smoking Tobacco: Never Assessed Sex and Gender Information Value Date Recorded Sex Assigned at Not on file Gender Identity Not on file Sexual Orientation Not on file Plan of Treatment Not on file
[2025-08-30 14:06] LABS: Alanine Aminotransferase 18 U/L (0-31); Albumin Level 4.3 g/dL (3.5-5.0); Alkaline Phosphatase 110 U/L (39-117); Aspartate Amino Transferase 22 U/L (5-31); Total Protein 7.1 g/dL (6.5-8.0)
[2025-08-31 05:45] LABS: HBS Num1 > 1000.00 mIU/mL (0-7.99); HBc Num1 0.07 S/CO (0.00-0.79); HBsAGNum1 0.42 S/CO (0.00-0.99); Hepatitis B Surface Antigen Negative (Negative); ~HepC Num1 0.07 S/CO (0.00-0.79); ~Hepatitis B Surface Antibody REACTIVE (Nonreactive); ~Hepatitis C Antibody Nonreactive (Nonreactive)
== END 2025-08-30 10:29 | disposition home or self-care (01) ==
LOC: HO.HMGCLDS 10:28
PROVIDERS: PCP Internal Medicine; Visit Provider Internal Medicine
DX: R79.89 Other specified abnormal findings of blood chemistry (principal)
CPT/HCPCS: 36415; 80076; 86704; 86706; 86803; 87340